=== PATIENT | female | born 1945 | race Caucasian/White ===

== ENCOUNTER 2017-06-09 12:03 | Emergency (ER) | payer SELFPAY ==
[~2017-06-09] VITALS: Ht 160 cm; Wt 78.0 kg
[2017-06-09 12:05] VITALS: Ht 160 cm; Wt 78.0 kg
[2017-06-09] MEDS ORDERED: ONDANSETRON (ODT) 4 MG TAB ODT STA (13:02)
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
[2017-06-09] MEDS ORDERED: ONDA4TAB14 PO (14:41)
[2017-06-09 14:54] VITALS: BP 172/78; PULSE 76; RESP 18; TEMP 98.2
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
== END 2017-06-09 14:55 | disposition home or self-care (01) ==
LOC: FTE 12:03
DX: R51 Headache (principal); R11.0 Nausea; I10 Essential (primary) hypertension
CPT/HCPCS: 70450; 72125